=== PATIENT | female | born 1995 | race Caucasian/White ===

== ENCOUNTER → 2022-06-23 10:06 | Outpatient (CLI) | payer OTHER, SELFPAY ==
[2022-06-23 11:38] LABS: HCG,Quantitative < 2 mIU/ml (0-5.42)
== END ==
PROVIDERS: PCP Physician Assistant; Visit Provider Obstetrics & Gynecology
DX: Z32.00 Encounter for pregnancy test, result unknown (principal)
CPT/HCPCS: 36415; 84702; 86900; 86901